=== PATIENT | female | born 1995 | race Two or more races ===

== ENCOUNTER 2023-05-20 15:43 | Emergency (ER) | payer MEDICAID ==
[~2023-05-20] VITALS: Ht 157.5 cm; Wt 76.0 kg
[2023-05-20 16:34] LABS: Basophils # (auto) 0 10 ^3/uL (0-0.2); Basophils % (auto) 0.7 % (0.0-2.0); Eosinophils # (auto) 0.1 10 ^3/uL (0-0.8); Eosinophils % (auto) 1.3 % (0.0-7.0); Hemoglobin 11.8 g/dL (12.2-16.2); Lymphocytes # (auto) 1.8 10 ^3/uL (0.4-5.4); Lymphocytes % (auto) 30.5 % (10.0-50.0); Mean Corpuscular Hemoglobin 25.6 pg (28.0-32.0); Mean Corpuscular Hgb Conc. 32.7 g/dL (32.0-36.0); Mean Corpuscular Volume 78.2 fL (80.0-100.0); Monocytes # (auto) 0.4 10 ^3/uL (0-1.3); Monocytes % (auto) 7.6 % (0.0-12.0); Neutrophils # (auto) 3.5 10 ^3/uL (1.6-8.6); Neutrophils % (auto) 59.9 % (37.0-80.0); Red Cell Distribution Width 14.5 % (11.8-14.3); White Blood Cell 5.9 10^3/uL (4.4-10.8)
[2023-05-20 16:50] LABS: INR 1.04 (0.9-1.15); Partial Thromboplastin Time 30.8 SEC (24.5-34.5); Prothrombin Time 10.9 sec (9.3-11.8)
[2023-05-20 16:53] LABS: Alanine Aminotransferase 21 U/L (7-40); Albumin 4.5 g/dL (3.2-4.8); Alkaline Phosphatase 64 U/L (46-116); Anion Gap 5 (5-15); Aspartate Aminotransferase 22 U/L (13-40); BUN/Creatinine Ratio 19.4 (10.0-20.0); Bilirubin, Total 0.6 mg/dL (0.2-1.0); Blood Urea Nitrogen 13 mg/dL (9-23); Calcium 9.3 mg/dL (8.7-10.4); Carbon Dioxide 28 mmol/L (20-30); Chloride 108 mmol/L (98-107); Glucose 109 mg/dL (74-106); Sodium 141 mmol/L (136-145)
[2023-05-20 16:54] LABS: Total Protein 6.9 g/dL (5.7-8.2)
[2023-05-20 18:45] VITALS: BP 147/82; PULSE 81; RESP 18; TEMP 97.2; O2SAT 96
== END 2023-05-20 18:50 | disposition home or self-care (01) ==
LOC: ER 15:43
DX: R07.89 Other chest pain (principal); R10.2 Pelvic and perineal pain; R09.1 Pleurisy
CPT/HCPCS: 36415; 71045; 71275; 80053; 84484; 84702; 85025; 85379; 85610; 85730; 93005